=== PATIENT | female | born 1955 | race Caucasian/White ===

== ENCOUNTER 2025-08-13 07:45 | Day surgery (SDC) | payer MEDICARE, OTHER, SELFPAY ==
[2025-08-09 08:41] VITALS: BMI 21.0
--- NOTE | 2025-08-12 10:55 | EKG_ITS ---
[address] [id number] [address] [address] Test Date: 2025-08-13 Pat Name: Deidre Adhikari Department: Room: Gender: Female Vocational Instructor: Jace GRACE : 1955 Requested By: Order Number: [id number] Reading MD: Kenny Hyde MD Measurements Intervals [place] Rate: 65 P: 58 [place]: 142 QRS: 46 QRSD: 90 T: 74 QT: 408 QTc: 424 Interpretive Statements Normal sinus rhythm Minimal voltage criteria for LVH, may be normal variant ( Ben product ) Electronically Signed On 08-13-2025 16:44:04 PDT by Kenny Hyde MD
--- NOTE | 2025-08-13 | DI.RAD.S_ITS ---
PROCEDURE: XR WRIST LT 2V INDICATIONS: Post op left wrist fixation TECHNIQUE: AP and views of the wrist were acquired. COMPARISON: [facility], CR, XR WRIST LT MIN 3V, 08/08/2025, 13:58. FINDINGS: Bones: Splint material obscures fine bone detail. Patient is status post dorsal plate and screw fixation of a distal radius metaphysis fracture. Hardware is intact. Improved alignment after operative fixation. Soft tissues: Moderate soft tissue swelling. IMPRESSION: Status post dorsal plain screw fixation of a distal radius fracture. Soft tissue swelling. Dictated by: Beba Saenz M.D. on 08/13/2025 at 12:37 Approved by: Beba Saenz M.D. on 08/13/2025 at 12:38
[2025-08-13 08:16] VITALS: BP 149/78; PULSE 71; RESP 16; TEMP 36.3; O2SAT 99
[2025-08-13] MEDS: LACTATED RINGERS 1,000 ML 42 ML IV (08:29)
[2025-08-13] MEDS: ACETAMINOPHEN 325 MG TABLET 650 MG PO (08:29)
[2025-08-13 08:30] LABS: Add Manual Diff / Slide Review NO; Hematocrit 39.5 % (36-46); Hemoglobin 13.4 g/dL (12.0-16.0); Lymphocytes Absolute Auto 1500 /uL (1100-4500); Mean Corpuscular HGB Conc 33.9 % (30-36); Mean Corpuscular Hemoglobin 29.8 PG (26-34); Mean Corpuscular Volume 87.9 fL (80-100); Platelet Count 164 X10^3/uL (150-400)
[2025-08-13 08:42] LABS: Blood Urea Nitrogen 21 mg/dL (7-17); Calcium 9.7 mg/dL (8.4-10.2); Carbon Dioxide 28 mmol/L (22-32); Chloride 101 mmol/L (98-107); Estimated Glomerular Filt Rate > 60 mL/min (>60); Glucose 96 mg/dL (70-99); HEMOLYSIS < 15 (0-50); Potassium 4.1 mmol/L (3.4-5.1); Sodium 136 mmol/L (137-145)
--- NOTE | 2025-08-13 08:58 | PM.PREOP ---
Pre-operative Note COVID-19 COVID-19 status: Not tested Interval Note History & Physical reviewed/Exam performed by Physician: Yes Changes to H&P: No
--- NOTE | 2025-08-13 09:43 | SUR.OPER ---
Addendum entered by Fatemeh Sahni RN 08/13/25 10:21: operative arm on padded arm board. non operative arm secured on padded arm board at ,90 degrees abduction Original Note: Supine on padded OR bed, head on pillow, arms secured on padded arm boards at <90 degrees abduction, legs uncrossed, safety belt at thigh, tape over blanket over lower legs
[2025-08-13 11:11] VITALS: BP 156/74; PULSE 63; RESP 18; TEMP 36.6; O2SAT 98
[2025-08-13 11:22] VITALS: BP 140/75; PULSE 67; RESP 20; TEMP 36.6; O2SAT 94
[2025-08-13 11:30] VITALS: BP 165/78; PULSE 64; RESP 15; TEMP 36.5; O2SAT 95
--- NOTE | 2025-08-13 11:57 | PM.OP.1 ---
Operative Date/Time/Diagnoses Date of procedure: 08/13/25 Time of procedure: 09:30 Pre-op diagnosis: left displace distal radius fracture Post-op diagnosis: same Procedure & Clinicians Procedure: 1) ORIF Left distal radius fracture 2) short arm splint 3) PIN neurectomy Same procedure(s) as scheduled: Yes Surgeon: Blaire Jesus Assisted?: Yes Proof Carrier: Bianca Rosales Anesthesia Type: General Operative Notes Findings: see below Closure Type: primary Specimen(s): none sent Applied: none Estimated Blood Loss (mL): 5 Blood products transfused: none Tourniquet time (min): 85 Procedure in detail: Preoperative diagnosis: Comminuted left displaced distal radius fracture and distal ulna styloid fracture Postoperative diagnosis: Same as above Implants: Arthrex narrow dorsal distal radius plate with multiple 2.4 mm and 3.5 mm screws Procedure in detail: Patient was met in the preoperative holding area. The consent was reviewed. Initials were placed on the operative site. The patient was taken back to the operating room and placed in supine position. General anesthesia was induced. A well-padded tourniquet was placed on the left upper extremity. A time-out was performed confirming the correct patient, correct procedure, correct extremity initials on the operative site. An Esmarch was used to exsanguinate the left upper extremity and the tourniquet was inflated to 200 mmHg. A 6 cm vertical incision was made centered over Shanell's tubercle. The extensor retinaculum was identified a generous flap was utilized and made. Dissecting over to the extensor pollicis longus. The extensor retinaculum was reflected. Subperiosteal dissection was obtained to expose the distal radius. The PIN was identified and a neurectomy was performed. The fracture site was identified and mobilized as well as irrigated. A reduction was performed. A dorsal plate was utilized. The position was confirmed with fluoroscopy. After ensuring that the reduction was performed the radial height was adequate radial inclination was adequate in the volar tilt was good I then placed several screws in the shaft and distally. I confirmed screw length and position with fluoroscopy. Intraoperative fluoroscopy was used to ensure adequate alignment . I utilized fluoroscopy to ensure adequate reduction and alignment as well as screw placement. I evaluated the distal radial ulnar joint and this was stable. The wound was copiously irrigated. I then used 0 vicryl to secure the dorsal capsule. I then closed the retinaculum part of it over the plate and part of it over the 4th dorsal compartment. The EPL was left outside of the retinaculum. I then closed the wounds with 2-0 Vicryl and 3-0 monocryl.? A sterile dressing and volar splint was placed. An anesthesiologist assistant certified was used in this procedure for positioning fracture reduction and fixation as well as closure. A total of 25 cc of 0.5% Marcaine were utilized as a field block. The patient was awoken and taken to the PACU in stable condition all counts were correct at the end the case. Postoperative plan will be to be in the splint for the 1st 2 weeks. I will then mobilize the patient and transition her to a removable splint. Complications: none Post-operative Condition: stable Disposition: PACU Complications: none Post-operative Condition: stable Disposition: PACU
[2025-08-13 12:15] VITALS: BP 155/78; PULSE 64; RESP 15; TEMP 36.5; O2SAT 95
== END 2025-08-13 12:50 | disposition home or self-care (01) ==
PROVIDERS: Student in an Organized Health Care Education/Training Program; PCP Family Medicine; Referring Provider Orthopaedic Surgery; Visit Provider Orthopaedic Surgery
PROC: (CPT 25607; principal; 2025-08-13 09:15)
DX: S52.592A Other fractures of lower end of left radius, initial encounter for closed fracture (principal); W19.XXXA Unspecified fall, initial encounter; I10 Essential (primary) hypertension; E78.5 Hyperlipidemia, unspecified
CPT/HCPCS: 25607; 36415; 73100; 80048; 85025; 93005; C1713; J0330; J0689; J1100; J1885; J2405; J2704; J3010; J7120